=== PATIENT | female | born 1995 | race Caucasian/White ===

== ENCOUNTER → 2018-05-21 | Outpatient (CLI) | payer OTHER | LOC: LAB 15:59 | DX: R19.7 Diarrhea, unspecified (principal) ==

== ENCOUNTER → 2021-10-24 | Outpatient (CLI) | payer OTHER | LOC: RAD 09:53 | DX: Z34.92 Encounter for supervision of normal pregnancy, unspecified, second trimester (principal); Z3A.14 14 weeks gestation of pregnancy ==